=== PATIENT | male | born 1955 | race Caucasian/White ===

== ENCOUNTER 2018-04-11 05:06 | Observation (INO) ==
[2018-04-11] MEDS ORDERED: MORPHINE 4 MG/1 ML VIAL IV PRN (05:36)
[2018-04-11] MEDS ORDERED: ONDANSETRON 4 MG/2 ML VIAL IV PRN (05:36)
[2018-04-11] MEDS ORDERED: NITROGLYCERIN SL 0.4 MG TABLET SL PRN (05:39)
[2018-04-11] MEDS ORDERED: GLUCAGON 1 MG VIAL IM PRN (06:16)
[2018-04-11] MEDS ORDERED: DEXTROSE 50% 25 GM/50 ML VIAL IV PRN (06:16)
[2018-04-11 06:19] LABS: Albumin 3.3 G/DL (3.4-5.0); Bilirubin,Total 0.4 MG/DL (0.2-1.0); Calcium 8.8 MG/DL (8.5-10.1); Osmolality,Calculated 287.4 MOS/KG (273-304); Potassium 3.7 MMOL/L (3.5-5.1); Risk Ratio 3.16; Total Protein 6.6 G/DL (6.4-8.3); VLDL CHOLESTEROL 57.6 MG/DL
[2018-04-11 06:22] LABS: Basophils # 0.1 10*3/uL (0.0-0.2); Basophils % 0.6 % (0.0-0.8); Eosinophils # 0.2 10*3/uL (0.0-0.87); Eosinophils % 2.1 % (0.00-10.9); Hematocrit 38.7 VOL% (42.0-52.0); Hemoglobin 13.1 GM/DL (14.0-18.0); Immature Granulocytes % 0.6 %; Immature Granulocytes Absolute 0.05 #; Lymphocytes # 2.1 10*3/uL (1.4-4.0); Lymphocytes % 26.4 % (21.2-54.2); Mean Corpuscular HGB Conc 33.9 GM/DL (32-36); Mean Corpuscular Hemoglobin 31 PG (27-34); Mean Platelet Volume 10.4 FL (9.6-12.0); Monocytes # 0.7 10*3/uL (0.11-0.8); Monocytes % 8.4 % (1.7-12.7); Neutrophils % 61.9 % (38.7-73.9); Platelet Count 214 T/CUMM (130-400); Red Cell Distribution Width 12.8 % (9.3-17.3)
[2018-04-11] MEDS ORDERED: POTASSIUM CHLORIDE 20 MEQ TABLET PO ONE (06:38)
[2018-04-11] MEDS ORDERED: ENOXAPARIN 40 MG/0.4 ML SYRINGE SUBCUT SCH (07:00)
[2018-04-11] MEDS ORDERED: INSULIN LISPRO 100 UNIT/ML SUBCUT SCH (07:30)
[2018-04-11] MEDS: GLIMEPIRIDE 4 MG TABLET PO SCH ×2 (08:28→20:55)
[2018-04-11] MEDS: INSULIN REGULAR 100 UNIT/ML SUBCUT SCH ×5 (08:34→20:59)
[2018-04-11] MEDS: PRAMIPEXOLE 1 MG TABLET PO SCH ×2 (08:37→21:07)
[2018-04-11] MEDS ORDERED: PANTOPRAZOLE 40 MG TABLET PO SCH ×2 (09:00→21:00)
[2018-04-11] MEDS ORDERED: MAGNESIUM SULF RIDER 2 GM in PREMIX 1 EACH IV PRN (11:01)
[2018-04-11] MEDS ORDERED: DIAZEPAM 5 MG TABLET PO ONE (11:01)
[2018-04-11] MEDS ORDERED: diphenhydrAMINE CAP 25 MG CAPSULE PO ONE (11:01)
[2018-04-11] MEDS ORDERED: POTASSIUM CHLORIDE RIDER 10 MEQ in PREMIX 1 EACH IV PRN (11:01)
[2018-04-11] MEDS ORDERED: HEPARIN/NACL 0.9% 2 UNITS/ML 1,000 ML IV ONE (11:24)
[2018-04-11] MEDS ORDERED: SODIUM CHLORIDE 0.45% 1,000 ML IV SCH (11:30)
[2018-04-11] MEDS ORDERED: NITROGLYCERIN DRIP 50 MG/250 ML BOTTLE IV ONE (11:34)
[2018-04-11] MEDS ORDERED: fentaNYL 100 MCG/2 ML VIAL ONE (11:35)
[2018-04-11] MEDS ORDERED: MIDAZOLAM 2 MG/2 ML VIAL ONE (11:35)
[2018-04-11] MEDS ORDERED: VERAPAMIL 5 MG/2 ML VIAL ONE (11:35)
[2018-04-11] MEDS ORDERED: ENOXAPARIN 30 MG/0.3 ML SYRINGE ONE (12:18)
[2018-04-11] MEDS ORDERED: ENOXAPARIN 80 MG/0.8 ML SYRINGE SUBCUT SCH (13:30)
[2018-04-11] MEDS: METOPROLOL TARTRATE 25 MG TABLET PO SCH (20:55)
[2018-04-11] MEDS ORDERED: ASPIRIN EC 81 MG TABLET PO SCH (21:00)
[2018-04-11] MEDS ORDERED: CLOPIDOGREL 75 MG TABLET PO SCH (21:00)
[2018-04-11] MEDS ORDERED: amLODIPine 10 MG TABLET PO SCH (21:00)
[2018-04-11] MEDS ORDERED: GABAPENTIN 300 MG CAPSULE PO SCH (21:00)
[2018-04-11] MEDS ORDERED: ATORVASTATIN 40 MG TABLET PO SCH (21:00)
[2018-04-11] MEDS ORDERED: ASPIRIN EC 325 MG TABLET PO SCH (21:00)
[2018-04-12 04:18] LABS: Basophils % 0.2 % (0.0-0.8); Eosinophils # 0.2 10*3/uL (0.0-0.87); Eosinophils % 2.9 % (0.00-10.9); Hemoglobin 13.6 GM/DL (14.0-18.0); Immature Granulocytes % 0.4 %; Immature Granulocytes Absolute 0.03 #; Lymphocytes # 2.5 10*3/uL (1.4-4.0); Lymphocytes % 29.4 % (21.2-54.2); Mean Corpuscular Hemoglobin 30 PG (27-34); Mean Corpuscular Volume 88.9 FL (87-102); Mean Platelet Volume 10.7 FL (9.6-12.0); Monocytes # 0.7 10*3/uL (0.11-0.8); Monocytes % 8.6 % (1.7-12.7); Neutrophils # 4.9 10*3/uL (1.4-7.4); Neutrophils % 58.5 % (38.7-73.9); Platelet Count 208 T/CUMM (130-400); Red Cell Distribution Width 13.2 % (9.3-17.3); White Blood Count 8.4 T/CUMM (4-12)
[2018-04-12 04:58] LABS: Calcium 8.4 MG/DL (8.5-10.1); Osmolality,Calculated 283.1 MOS/KG (273-304); Potassium 3.6 MMOL/L (3.5-5.1)
[2018-04-12] MEDS: INSULIN REGULAR 100 UNIT/ML SUBCUT SCH ×2 (08:44→12:17)
[2018-04-12] MEDS: GLIMEPIRIDE 4 MG TABLET PO SCH (08:44)
[2018-04-12] MEDS: METOPROLOL TARTRATE 25 MG TABLET PO SCH (08:44)
[2018-04-12] MEDS: PRAMIPEXOLE 1 MG TABLET PO SCH (08:44)
[2018-04-12 12:05] VITALS: BP 137/92
== END 2018-04-12 13:20 | disposition home or self-care (01) ==
LOC: EDBD → EDUNIT# → N.ED 05:06 → N.EDINP 05:06 → N.3E 06:25 → N.TELES 13:22
PROC: CLCCHCL (ICD-10-PCS; 2018-04-11 12:15)

== ENCOUNTER 2018-04-18 09:00 | Inpatient (IN) ==
[~2018-04-18 09:00] MED LIST: DEXTROSE 50% 25 GM/50 ML VIAL IV PRN; GLUCAGON 1 MG VIAL IM PRN; NITROGLYCERIN SL 0.4 MG TABLET SL PRN; PRAVASTATIN 40 MG TABLET PO SCH; traMADol 50 MG TABLET PO PRN
[2018-04-18 11:00] LABS: Basophils % 0.4 % (0.0-0.8); Eosinophils # 0.1 10*3/uL (0.0-0.87); Eosinophils % 1.4 % (0.00-10.9); Hematocrit 42.5 VOL% (42.0-52.0); Hemoglobin 14.3 GM/DL (14.0-18.0); Immature Granulocytes % 0.4 %; Immature Granulocytes Absolute 0.03 #; Lymphocytes # 2.3 10*3/uL (1.4-4.0); Lymphocytes % 28.9 % (21.2-54.2); Mean Corpuscular HGB Conc 33.6 GM/DL (32-36); Mean Corpuscular Hemoglobin 30 PG (27-34); Mean Corpuscular Volume 89.9 FL (87-102); Mean Platelet Volume 10.7 FL (9.6-12.0); Monocytes # 0.8 10*3/uL (0.11-0.8); Monocytes % 9.6 % (1.7-12.7); Neutrophils # 4.6 10*3/uL (1.4-7.4); Neutrophils % 59.3 % (38.7-73.9); Platelet Count 205 T/CUMM (130-400); Red Blood Count 4.73 MC/CUMM (3.8-5.5); Red Cell Distribution Width 12.8 % (9.3-17.3); White Blood Count 7.8 T/CUMM (4-12)
[2018-04-18 11:01] LABS: ABG Base Excess 0.1 MMOL/L (-2.5-2.5); ABG HCO3 24.5 MMOL/L (20-26); ABG Oxygen Saturation 96.8 % (95-100); ABG PCO2 41.6 MM HG (35-48); ABG PH 7.389 (7.35-7.45); ABG TCO2 21.6 MMOL/L (23-27)
[2018-04-18 11:35] LABS: Albumin 3.7 G/DL (3.4-5.0); Bilirubin,Total 0.6 MG/DL (0.2-1.0); Calcium 9.3 MG/DL (8.5-10.1); Osmolality,Calculated 281.5 MOS/KG (273-304); Total Protein 7.5 G/DL (6.4-8.3)
[2018-04-18] MEDS: PANTOPRAZOLE 40 MG TABLET PO SCH ×3 (14:40→21:21)
[2018-04-18] MEDS: CHLORHEXIDINE 4% SOLN 118 ML BOTTLE TOP SCH ×2 (15:00→21:23)
[2018-04-18] MEDS: SODIUM CHLORIDE 0.9% 1,000 ML IV SCH (16:53)
[2018-04-18] MEDS: ATORVASTATIN 40 MG TABLET PO SCH ×3 (16:53→16:56)
[2018-04-18] MEDS ORDERED: GABAPENTIN 300 MG CAPSULE PO SCH (21:00)
[2018-04-18] MEDS ORDERED: PRAVASTATIN 40 MG TABLET PO SCH (21:00)
[2018-04-18] MEDS ORDERED: amLODIPine 10 MG TABLET PO SCH (21:00)
[2018-04-18] MEDS: PRAMIPEXOLE 1 MG TABLET PO SCH (21:20)
[2018-04-18] MEDS: METOPROLOL TARTRATE 25 MG TABLET PO SCH (21:20)
[2018-04-18] MEDS: GLIMEPIRIDE 4 MG TABLET PO SCH (21:20)
[2018-04-18] MEDS: CHLORHEXIDINE 0.12% ORAL RINSE 60 ML BOTTLE SWISH/SPIT SCH (21:23)
[2018-04-19] MEDS ORDERED: CEFUROXIME INJ 1,500 MG in SYRINGE 1 EACH IV ONE (05:00)
[2018-04-19] MEDS ORDERED: FAMOTIDINE 20 MG TABLET PO ONE ×2 (05:02→05:30)
[2018-04-19] MEDS ORDERED: DIAZEPAM 5 MG TABLET PO ONE ×2 (05:02→05:30)
[2018-04-19] MEDS ORDERED: METOPROLOL TARTRATE 25 MG TABLET PO ONE ×2 (05:02→05:30)
[2018-04-19] MEDS ORDERED: VANCOMYCIN 1,000 MG VIAL ONE (05:17)
[2018-04-19] MEDS ORDERED: PAPAVERINE 60 MG/2 ML VIAL ONE (05:17)
[2018-04-19] MEDS ORDERED: PHENYLEPHRINE DRIP 40 MG/250 ML PREMIX IV ONE (07:28)
[2018-04-19] MEDS ORDERED: CALCIUM CHLORIDE 1,000 MG/10 ML SYRINGE IV ONE (07:28)
[2018-04-19] MEDS ORDERED: NITROPRUSSIDE 50 MG/2 ML VIAL ONE (07:28)
[2018-04-19] MEDS ORDERED: POTASSIUM CHLORIDE RIDER 100 ML IV ONE (07:29)
[2018-04-19 07:37] LABS: ABG Base Excess -1.6 MMOL/L (-2.5-2.5); ABG HCO3 24.3 MMOL/L (20-26); ABG Oxygen Saturation 99.5 % (95-100); ABG PCO2 45.6 MM HG (35-48); ABG PH 7.345 (7.35-7.45); ABG PO2 457.3 MM HG (80-95); ABG TCO2 25.7 MMOL/L (23-27); Glucose Heart Surgery 199 MG/DL (74-106); Hemoglobin Heart Surgery 14.5 G/DL (14.0-18.0); PCO2 Patient Temp Arterial 45.6 MMHG; PH Patient Temp Arterial 7.345; PO2 Patient Temp Arterial 457.3 MM HG; Patient Temperature 37 CELCIUS; Potassium Heart/CVR 4.1 MMOL/L (3.5-5.1); Sodium Heart/CVR 138 MMOL/L (135-145)
[2018-04-19 08:17] LABS: Apearance,Urine Slightly Hazy (Clear); Bilirubin,Urine Negative (Negative); Blood, Urine Large mg/dL (Negative); Glucose,Urine (UA) >=500 mg/dL (Negative); Ketones,Urine Negative (Negative); Mucus,Urine Occasional /LPF (Occasional); Nitrite,Urine Negative (Negative); Protein,Urine 30 MG/DL; RBC,Urine 1065 /HPF (0-4); Urine Color Yellow (Yellow); Urine Urobilinogen < 2.0 EU/DL (0.2-1.0); WBC,Urine 4 /HPF (0-6)
[2018-04-19] MEDS ORDERED: ASPIRIN EC 325 MG TABLET PO SCH (09:00)
[2018-04-19] MEDS: CHLORHEXIDINE 4% SOLN 118 ML BOTTLE TOP SCH (09:07)
[2018-04-19] MEDS: GLIMEPIRIDE 4 MG TABLET PO SCH (09:07)
[2018-04-19] MEDS: CHLORHEXIDINE 0.12% ORAL RINSE 60 ML BOTTLE SWISH/SPIT SCH (09:07)
[2018-04-19] MEDS: PRAMIPEXOLE 1 MG TABLET PO SCH (09:07)
[2018-04-19] MEDS: METOPROLOL TARTRATE 25 MG TABLET PO SCH (09:07)
[2018-04-19 09:11] LABS: Hemoglobin Heart Surgery 10.3 G/DL (14.0-18.0); PCO2 Patient Temp Venous 35.3 MM HG; PH Patient Temp Venous 7.455; PO2 Patient Temp Venous 47.1 MM HG; Potassium Heart/CVR 4.9 MMOL/L (3.5-5.1); VBG Base Excess 0.4 MEQ/L (0-4); VBG HCO3 24.7 MEQ/L (24-28); VBG Oxygen Saturation 85.3 %; VBG PCO2 38.5 MMHG (41-51); VBG PH 7.425; VBG PO2 54.2 MMHG (17-40)
[2018-04-19 09:50] LABS: Hemoglobin Heart Surgery 10.9 G/DL (14.0-18.0); PCO2 Patient Temp Venous 29.4 MM HG; PH Patient Temp Venous 7.513; PO2 Patient Temp Venous 42.9 MM HG; Potassium Heart/CVR 5.4 MMOL/L (3.5-5.1); VBG Base Excess 0.4 MEQ/L (0-4); VBG HCO3 23.7 MEQ/L (24-28); VBG Oxygen Saturation 86.4 %; VBG PCO2 33.5 MMHG (41-51); VBG PH 7.468; VBG PO2 52.9 MMHG (17-40)
[2018-04-19 10:13] LABS: Hemoglobin Heart Surgery 10.3 G/DL (14.0-18.0); PCO2 Patient Temp Venous 30.5 MM HG; PH Patient Temp Venous 7.5; Potassium Heart/CVR 5.7 MMOL/L (3.5-5.1); VBG Base Excess 0.5 MEQ/L (0-4); VBG HCO3 23.5 MEQ/L (24-28); VBG Oxygen Saturation 79.6 %; VBG PCO2 31.9 MMHG (41-51); VBG PH 7.485
[2018-04-19 10:46] LABS: ABG Base Excess -1.4 MMOL/L (-2.5-2.5); ABG HCO3 22.8 MMOL/L (20-26); ABG Oxygen Saturation 98.3 % (95-100); ABG PCO2 36.3 MM HG (35-48); ABG PH 7.416 (7.35-7.45); ABG PO2 151.2 MM HG (80-95); ABG TCO2 23.9 MMOL/L (23-27); Glucose Heart Surgery 270 MG/DL (74-106); Hemoglobin Heart Surgery 11.1 G/DL (14.0-18.0); PCO2 Patient Temp Arterial 36.3 MMHG; PH Patient Temp Arterial 7.416; PO2 Patient Temp Arterial 151.2 MM HG; Patient Temperature 37 CELCIUS; Potassium Heart/CVR 4.8 MMOL/L (3.5-5.1); Sodium Heart/CVR 132 MMOL/L (135-145)
[2018-04-19] MEDS ORDERED: DEXTROSE 5% KCL 20 MEQ 20 MEQ/1,000 ML BAG IV ONE (10:57)
[2018-04-19] MEDS ORDERED: PROTAMINE SULFATE 250 MG/25 ML VIAL IV ONE (10:58)
[2018-04-19] MEDS ORDERED: SODIUM BICARBONATE 50 MEQ/50 ML SYRINGE IV ONE (10:58)
[2018-04-19] MEDS ORDERED: FUROSEMIDE 20 MG/2 ML VIAL ONE (10:58)
[2018-04-19] MEDS ORDERED: ALBUMIN 25% 25 GM/100 ML VIAL IV ONE (10:58)
[2018-04-19] MEDS ORDERED: ALBUMIN 5% 12.5 GM/250 ML VIAL IV ONE (10:58)
[2018-04-19] MEDS ORDERED: MANNITOL 12.5 GM/50 ML VIAL IV ONE (10:58)
[2018-04-19] MEDS ORDERED: methylPREDNISolone SOD SUC 1,000 MG/8 ML VIAL ONE (10:58)
[2018-04-19] MEDS ORDERED: HEPARIN 10,000 UNIT/10 ML VIAL ONE (10:58)
[2018-04-19] MEDS ORDERED: PROTAMINE SULFATE 50 MG/5 ML VIAL IV ONE ×3 (10:58→12:30)
[2018-04-19] MEDS ORDERED: MAGNESIUM SULFATE 1 GM/2 ML VIAL ONE (10:58)
[2018-04-19] MEDS ORDERED: MIDAZOLAM 10 MG/2 ML VIAL IV PRN (11:51)
[2018-04-19] MEDS ORDERED: MIDAZOLAM 2 MG/2 ML VIAL IV PRN (11:51)
[2018-04-19] MEDS ORDERED: ONDANSETRON 4 MG/2 ML VIAL IV PRN (11:51)
[2018-04-19] MEDS ORDERED: LACTATED RINGERS 250 ML IV PRN (11:51)
[2018-04-19] MEDS ORDERED: VECURONIUM 10 MG VIAL IV PRN ×2 (11:51)
[2018-04-19] MEDS ORDERED: MAGNESIUM SULF RIDER 4 GM in PREMIX 1 EACH IV PRN (11:51)
[2018-04-19] MEDS ORDERED: CALCIUM CHLORIDE 1,000 MG/10 ML SYRINGE IV PRN (11:51)
[2018-04-19] MEDS ORDERED: MAGNESIUM SULF RIDER 2 GM in PREMIX 1 EACH IV PRN (11:51)
[2018-04-19] MEDS ORDERED: PHENYLEPHRINE DRIP 40 MG/250 ML PREMIX IV PRN (11:51)
[2018-04-19] MEDS ORDERED: INSULIN REGULAR 100 UNIT/ML IV PRN (11:51)
[2018-04-19] MEDS ORDERED: ALBUMIN 5% 12.5 GM in PREMIX 1 EACH IV PRN (11:51)
[2018-04-19] MEDS ORDERED: ACETAMINOPHEN 650 MG SUPP RECTAL PRN (11:51)
[2018-04-19] MEDS ORDERED: NITROPRUSSIDE 100 MG in DEXTROSE 5% 250 ML IV PRN (11:51)
[2018-04-19] MEDS ORDERED: INSULIN REGULAR 100 UNIT/ML IV ONE (11:51)
[2018-04-19] MEDS ORDERED: DEXTROSE 50% 25 GM/50 ML VIAL IV PRN ×2 (11:51)
[2018-04-19] MEDS ORDERED: MORPHINE 10 MG/1 ML VIAL IV PRN (11:51)
[2018-04-19] MEDS ORDERED: INSULIN REGULAR DRIP 100 ML IV SCH (12:00)
[2018-04-19] MEDS ORDERED: SODIUM CHLORIDE 0.45% 1,000 ML IV SCH ×2 (12:00)
[2018-04-19 12:12] LABS: ABG Base Excess -1.9 MMOL/L (-2.5-2.5); ABG HCO3 23.7 MMOL/L (20-26); ABG Oxygen Saturation 95.8 % (95-100); ABG PCO2 43.5 MM HG (35-48); ABG PH 7.354 (7.35-7.45); ABG PO2 95.8 MM HG (80-95); Glucose Heart Surgery 211 MG/DL (74-106); Hemoglobin Heart Surgery 11.5 G/DL (14.0-18.0); Potassium Heart/CVR 3.7 MMOL/L (3.5-5.1)
[2018-04-19 12:18] LABS: Basophils % 0.2 % (0.0-0.8); Eosinophils # 0.1 10*3/uL (0.0-0.87); Eosinophils % 0.6 % (0.00-10.9); Hematocrit 31.9 VOL% (42.0-52.0); Hemoglobin 10.9 GM/DL (14.0-18.0); Immature Granulocytes % 0.9 %; Immature Granulocytes Absolute 0.11 #; Lymphocytes # 1.8 10*3/uL (1.4-4.0); Lymphocytes % 13.8 % (21.2-54.2); Mean Corpuscular HGB Conc 34.2 GM/DL (32-36); Mean Corpuscular Hemoglobin 31 PG (27-34); Mean Corpuscular Volume 91.4 FL (87-102); Mean Platelet Volume 10.9 FL (9.6-12.0); Monocytes # 0.7 10*3/uL (0.11-0.8); Monocytes % 5.7 % (1.7-12.7); Neutrophils % 78.8 % (38.7-73.9); Platelet Count 186 T/CUMM (130-400); Red Blood Count 3.49 MC/CUMM (3.8-5.5); White Blood Count 12.7 T/CUMM (4-12)
[2018-04-19] MEDS: POTASSIUM CHLORIDE RIDER 20 MEQ in PREMIX 1 EACH IV PRN ×4 (12:18→20:27)
[2018-04-19 12:25] LABS: INR 1.3; PT Patient Result 13.5 SECS; Partial Thromboplastin Time 27.4 SECS (0-40)
[2018-04-19 12:54] LABS: CKMB % 7.7 %
[2018-04-19 13:07] LABS: Albumin 3.1 G/DL (3.4-5.0); Bilirubin,Total 1.3 MG/DL (0.2-1.0); Calcium 9.9 MG/DL (8.5-10.1); Osmolality,Calculated 288.3 MOS/KG (273-304); Potassium 3.8 MMOL/L (3.5-5.1); Total Protein 5.3 G/DL (6.4-8.3)
[2018-04-19 13:45] LABS: ABG Base Excess 0.3 MMOL/L (-2.5-2.5); ABG HCO3 26.3 MMOL/L (20-26); ABG Oxygen Saturation 95.5 % (95-100); ABG PH 7.348 (7.35-7.45); ABG PO2 93.2 MM HG (80-95); ABG TCO2 27.8 MMOL/L (23-27); Glucose Heart Surgery 166 MG/DL (74-106); Potassium Heart/CVR 3.8 MMOL/L (3.5-5.1)
[2018-04-19] MEDS: KETOROLAC 30 MG/1 ML VIAL IV SCH ×2 (14:29→17:36)
[2018-04-19] MEDS: POTASSIUM CHLORIDE RIDER 10 MEQ in PREMIX 1 EACH IV PRN ×2 (14:51→21:00)
[2018-04-19 16:22] LABS: ABG Base Excess -0.4 MMOL/L (-2.5-2.5); ABG HCO3 26.7 MMOL/L (20-26); ABG Oxygen Saturation 95.2 % (95-100); ABG PCO2 55.6 MM HG (35-48); ABG PO2 93.5 MM HG (80-95); ABG TCO2 28.5 MMOL/L (23-27); Glucose Heart Surgery 128 MG/DL (74-106); Hemoglobin Heart Surgery 11.5 G/DL (14.0-18.0); Potassium Heart/CVR 4.1 MMOL/L (3.5-5.1)
[2018-04-19] MEDS: SODIUM CHLORIDE 0.9% 1,000 ML IV SCH (17:32)
[2018-04-19 17:46] LABS: ABG Base Excess -1.1 MMOL/L (-2.5-2.5); ABG HCO3 25.4 MMOL/L (20-26); ABG Oxygen Saturation 96.2 % (95-100); ABG PCO2 49.9 MM HG (35-48); ABG PH 7.325 (7.35-7.45); ABG PO2 101.1 MM HG (80-95); Glucose Heart Surgery 134 MG/DL (74-106); Hemoglobin Heart Surgery 12.8 G/DL (14.0-18.0); Potassium Heart/CVR 4.5 MMOL/L (3.5-5.1)
[2018-04-19 19:10] LABS: ABG Base Excess -5.2 MMOL/L (-2.5-2.5); ABG PCO2 43.3 MM HG (35-48); ABG PH 7.303 (7.35-7.45); ABG PO2 98.2 MM HG (80-95); ABG TCO2 22.3 MMOL/L (23-27); Glucose Heart Surgery 180 MG/DL (74-106); Hemoglobin Heart Surgery 11.4 G/DL (14.0-18.0); Potassium Heart/CVR 3.9 MMOL/L (3.5-5.1)
[2018-04-19] MEDS: ALBUTEROL/IPRATROPIUM 3 ML NEB RESP TX SCH (19:26)
[2018-04-19 20:06] LABS: ABG Base Excess -4.6 MMOL/L (-2.5-2.5); ABG HCO3 21.2 MMOL/L (20-26); ABG Oxygen Saturation 96.3 % (95-100); ABG PCO2 41.9 MM HG (35-48); ABG PH 7.321 (7.35-7.45); ABG TCO2 22.4 MMOL/L (23-27); Glucose Heart Surgery 190 MG/DL (74-106); Hemoglobin Heart Surgery 10.6 G/DL (14.0-18.0); Potassium Heart/CVR 3.8 MMOL/L (3.5-5.1)
[2018-04-19] MEDS ORDERED: FUROSEMIDE 40 MG/4 ML VIAL IV ONE (20:07)
[2018-04-19] MEDS: CEFUROXIME INJ 1,500 MG in SYRINGE 1 EACH IV SCH (20:27)
[2018-04-19 20:38] LABS: CKMB % 6.9 %
[2018-04-19] MEDS ORDERED: CHLORHEXIDINE 0.12% ORAL RINSE 60 ML BOTTLE SWISH/SPIT SCH (21:00)
[2018-04-19 21:25] LABS: ABG Base Excess -4.2 MMOL/L (-2.5-2.5); ABG HCO3 21.1 MMOL/L (20-26); ABG Oxygen Saturation 94.3 % (95-100); ABG PCO2 39.5 MM HG (35-48); ABG PH 7.346 (7.35-7.45); ABG PO2 83.1 MM HG (80-95); ABG TCO2 22.3 MMOL/L (23-27); Glucose Heart Surgery 190 MG/DL (74-106); Hemoglobin Heart Surgery 10.8 G/DL (14.0-18.0); Potassium Heart/CVR 4.1 MMOL/L (3.5-5.1)
[2018-04-19] MEDS: MORPHINE 4 MG/1 ML VIAL IV PRN (21:36)
[2018-04-20 00:05] LABS: ABG Base Excess 1.3 MMOL/L (-2.5-2.5); ABG HCO3 25.9 MMOL/L (20-26); ABG PCO2 41.3 MM HG (35-48); ABG PH 7.416 (7.35-7.45); ABG PO2 71.5 MM HG (80-95); ABG TCO2 27.2 MMOL/L (23-27); Glucose Heart Surgery 145 MG/DL (74-106); Hemoglobin Heart Surgery 10.4 G/DL (14.0-18.0); Potassium Heart/CVR 3.9 MMOL/L (3.5-5.1)
[2018-04-20] MEDS: MORPHINE 4 MG/1 ML VIAL IV PRN ×2 (02:03→05:07)
[2018-04-20 03:52] LABS: ABG Base Excess 0.9 MMOL/L (-2.5-2.5); ABG HCO3 25.6 MMOL/L (20-26); ABG Oxygen Saturation 93.6 % (95-100); ABG PCO2 41.4 MM HG (35-48); ABG PH 7.409 (7.35-7.45); ABG PO2 80.1 MM HG (80-95); ABG TCO2 26.9 MMOL/L (23-27); Glucose Heart Surgery 148 MG/DL (74-106); Hemoglobin Heart Surgery 10.3 G/DL (14.0-18.0); Potassium Heart/CVR 3.7 MMOL/L (3.5-5.1)
[2018-04-20 03:52] LABS: Basophils % 0.1 % (0.0-0.8); Hematocrit 28.8 VOL% (42.0-52.0); Hemoglobin 9.7 GM/DL (14.0-18.0); Immature Granulocytes % 0.8 %; Immature Granulocytes Absolute 0.13 #; Lymphocytes # 0.7 10*3/uL (1.4-4.0); Lymphocytes % 4.4 % (21.2-54.2); Mean Corpuscular HGB Conc 33.7 GM/DL (32-36); Mean Corpuscular Hemoglobin 31 PG (27-34); Mean Platelet Volume 10.7 FL (9.6-12.0); Monocytes # 1.1 10*3/uL (0.11-0.8); Monocytes % 6.5 % (1.7-12.7); Neutrophils # 14.6 10*3/uL (1.4-7.4); Neutrophils % 88.2 % (38.7-73.9); Platelet Count 174 T/CUMM (130-400); Red Blood Count 3.13 MC/CUMM (3.8-5.5); Red Cell Distribution Width 13.2 % (9.3-17.3); White Blood Count 16.6 T/CUMM (4-12)
[2018-04-20] MEDS: POTASSIUM CHLORIDE RIDER 20 MEQ in PREMIX 1 EACH IV PRN (04:01)
[2018-04-20 04:23] LABS: Albumin 3.5 G/DL (3.4-5.0); Bilirubin,Direct 0.22 MG/DL (0.0-0.20); Bilirubin,Total 0.8 MG/DL (0.2-1.0); CKMB % 7.1 %; Calcium 8.9 MG/DL (8.5-10.1); Osmolality,Calculated 285.3 MOS/KG (273-304); Potassium 3.8 MMOL/L (3.5-5.1); Total Protein 6.4 G/DL (6.4-8.3)
[2018-04-20] MEDS: POTASSIUM CHLORIDE RIDER 10 MEQ in PREMIX 1 EACH IV PRN (04:33)
[2018-04-20 04:43] LABS: Band Neutrophils 3 % (0-10); Hypochromasia 1+; Lymphocytes 9 % (20-55); Platelet Estimate Normal; Segmented Neutrophils 85 % (50-85); Total Cells Counted 100
[2018-04-20] MEDS: KETOROLAC 30 MG/1 ML VIAL IV SCH ×5 (05:57→22:00)
[2018-04-20] MEDS ORDERED: traMADol 50 MG TABLET PO PRN (06:21)
[2018-04-20] MEDS: ALBUTEROL/IPRATROPIUM 3 ML NEB RESP TX SCH ×4 (07:02→20:09)
[2018-04-20] MEDS: CEFUROXIME INJ 1,500 MG in SYRINGE 1 EACH IV SCH (07:34)
[2018-04-20] MEDS ORDERED: DEXTROSE 50% 25 GM/50 ML VIAL IV PRN ×3 (07:45→08:29)
[2018-04-20] MEDS ORDERED: GLUCAGON 1 MG VIAL IM PRN ×3 (07:45→08:29)
[2018-04-20] MEDS ORDERED: ACETAMINOPHEN 325 MG TABLET PO PRN (08:29)
[2018-04-20] MEDS ORDERED: POTASSIUM CHLORIDE 20 MEQ TABLET PO PRN (08:29)
[2018-04-20] MEDS ORDERED: MORPHINE 4 MG/1 ML VIAL IV PRN (08:29)
[2018-04-20] MEDS ORDERED: MAGNESIUM SULF RIDER 4 GM in PREMIX 1 EACH IV PRN (08:29)
[2018-04-20] MEDS ORDERED: ZALEPLON 5 MG CAPSULE PO PRN (08:29)
[2018-04-20] MEDS ORDERED: ONDANSETRON 4 MG/2 ML VIAL IV PRN (08:29)
[2018-04-20] MEDS ORDERED: MAGNESIUM SULF RIDER 2 GM in PREMIX 1 EACH IV PRN (08:29)
[2018-04-20] MEDS ORDERED: ALUMINUM/MAGNES/SIMETH MAX STR 30 ML UDCUP PO PRN (08:29)
[2018-04-20] MEDS: SODIUM CHLOR 0.45% KCL 20 MEQ 20 MEQ/1,000 ML BAG IV SCH (09:27)
[2018-04-20] MEDS: CHLORHEXIDINE 0.12% ORAL RINSE 60 ML BOTTLE SWISH/SPIT SCH ×2 (09:27→22:02)
[2018-04-20] MEDS: DOCUSATE SODIUM 100 MG CAPSULE PO SCH (09:28)
[2018-04-20] MEDS: METOPROLOL TARTRATE 25 MG TABLET PO SCH ×2 (09:28→22:02)
[2018-04-20] MEDS: PRAMIPEXOLE 1 MG TABLET PO SCH ×2 (09:28→22:01)
[2018-04-20] MEDS: FERROUS SULFATE 325 MG TABLET PO SCH (09:28)
[2018-04-20] MEDS: ASPIRIN EC 325 MG TABLET PO SCH (09:28)
[2018-04-20] MEDS: GLIMEPIRIDE 4 MG TABLET PO SCH ×2 (09:28→22:44)
[2018-04-20] MEDS: PANTOPRAZOLE 40 MG TABLET PO SCH (09:28)
[2018-04-20] MEDS ORDERED: INSULIN REGULAR 100 UNIT/ML SUBCUT SCH (10:00)
[2018-04-20] MEDS: INSULIN REGULAR 100 UNIT/ML SUBCUT SCH ×3 (13:02→22:00)
[2018-04-20] MEDS: GABAPENTIN 300 MG CAPSULE PO SCH (22:02)
[2018-04-20] MEDS: amLODIPine 10 MG TABLET PO SCH (22:02)
[2018-04-20] MEDS: PRAVASTATIN 40 MG TABLET PO SCH (22:02)
[2018-04-21] MEDS: ALBUTEROL/IPRATROPIUM 3 ML NEB RESP TX SCH ×4 (00:51→19:13)
[2018-04-21] MEDS: INSULIN REGULAR 100 UNIT/ML SUBCUT SCH ×7 (01:28→23:37)
[2018-04-21] MEDS: KETOROLAC 30 MG/1 ML VIAL IV SCH ×4 (03:00→21:00)
[2018-04-21 04:52] LABS: Basophils % 0.1 % (0.0-0.8); Hematocrit 25.6 VOL% (42.0-52.0); Hemoglobin 8.7 GM/DL (14.0-18.0); Immature Granulocytes % 2.5 %; Immature Granulocytes Absolute 0.42 #; Lymphocytes # 1.2 10*3/uL (1.4-4.0); Lymphocytes % 7.1 % (21.2-54.2); Mean Corpuscular Hemoglobin 31 PG (27-34); Mean Corpuscular Volume 91.1 FL (87-102); Mean Platelet Volume 11.7 FL (9.6-12.0); Monocytes # 1.4 10*3/uL (0.11-0.8); Monocytes % 8.5 % (1.7-12.7); Neutrophils # 13.9 10*3/uL (1.4-7.4); Neutrophils % 81.8 % (38.7-73.9); Platelet Count 157 T/CUMM (130-400); Red Blood Count 2.81 MC/CUMM (3.8-5.5); Red Cell Distribution Width 13.5 % (9.3-17.3)
[2018-04-21 05:30] LABS: Bilirubin,Direct 0.14 MG/DL (0.0-0.20); Bilirubin,Indirect 0.6 MG/DL (0.0-1.0); Bilirubin,Total 0.7 MG/DL (0.2-1.0)
[2018-04-21 05:32] LABS: Albumin 2.9 G/DL (3.4-5.0); Calcium 8.8 MG/DL (8.5-10.1); Osmolality,Calculated 293.4 MOS/KG (273-304); Potassium 4.2 MMOL/L (3.5-5.1)
[2018-04-21] MEDS ORDERED: FUROSEMIDE 40 MG/4 ML VIAL IV ONE (06:00)
[2018-04-21] MEDS: GLIMEPIRIDE 4 MG TABLET PO SCH ×2 (08:51→20:59)
[2018-04-21] MEDS: PRAMIPEXOLE 1 MG TABLET PO SCH ×2 (08:51→20:59)
[2018-04-21] MEDS: FERROUS SULFATE 325 MG TABLET PO SCH (08:51)
[2018-04-21] MEDS: DOCUSATE SODIUM 100 MG CAPSULE PO SCH (08:51)
[2018-04-21] MEDS: METOPROLOL TARTRATE 25 MG TABLET PO SCH ×2 (08:51→20:59)
[2018-04-21] MEDS: ASPIRIN EC 325 MG TABLET PO SCH (08:51)
[2018-04-21] MEDS: PANTOPRAZOLE 40 MG TABLET PO SCH (08:51)
[2018-04-21] MEDS: CHLORHEXIDINE 0.12% ORAL RINSE 60 ML BOTTLE SWISH/SPIT SCH ×2 (08:52→21:01)
[2018-04-21] MEDS: SODIUM CHLOR 0.45% KCL 20 MEQ 20 MEQ/1,000 ML BAG IV SCH (08:52)
[2018-04-21] MEDS: LEVOFLOXACIN 500 MG TABLET PO SCH (13:39)
[2018-04-21] MEDS: methylPREDNISolone SOD SUC 125 MG/2 ML VIAL IV SCH ×2 (13:40→23:38)
[2018-04-21] MEDS: GABAPENTIN 300 MG CAPSULE PO SCH (20:59)
[2018-04-21] MEDS: PRAVASTATIN 40 MG TABLET PO SCH (20:59)
[2018-04-21] MEDS: amLODIPine 10 MG TABLET PO SCH (20:59)
[2018-04-22] MEDS: ALBUTEROL/IPRATROPIUM 3 ML NEB RESP TX SCH ×4 (00:58→19:34)
[2018-04-22] MEDS: KETOROLAC 30 MG/1 ML VIAL IV SCH ×4 (03:50→21:35)
[2018-04-22 05:09] LABS: Basophils % 0.1 % (0.0-0.8); Hematocrit 26.6 VOL% (42.0-52.0); Hemoglobin 8.6 GM/DL (14.0-18.0); Immature Granulocytes % 1.8 %; Immature Granulocytes Absolute 0.26 #; Lymphocytes # 0.6 10*3/uL (1.4-4.0); Lymphocytes % 4.2 % (21.2-54.2); Mean Corpuscular HGB Conc 32.3 GM/DL (32-36); Mean Corpuscular Hemoglobin 30 PG (27-34); Mean Platelet Volume 11.8 FL (9.6-12.0); Monocytes # 0.7 10*3/uL (0.11-0.8); NRBC # 0.02 10*3/uL; Neutrophils # 12.9 10*3/uL (1.4-7.4); Neutrophils % 88.9 % (38.7-73.9); Platelet Count 159 T/CUMM (130-400); Red Blood Count 2.89 MC/CUMM (3.8-5.5); Red Cell Distribution Width 13.5 % (9.3-17.3); White Blood Count 14.5 T/CUMM (4-12)
[2018-04-22 05:14] LABS: Bilirubin,Indirect 0.7 MG/DL (0.0-1.0)
[2018-04-22 05:17] LABS: Alanine Aminotransferase 59 U/L (16-61); Albumin 2.7 G/DL (3.4-5.0); Alkaline Phosphatase 63 U/L (45-117); Aspartate Amino Transferase 40 U/L (0-37); Blood Urea Nitrogen 26 MG/DL (7-18); Calcium 9.3 MG/DL (8.5-10.1); Glucose 228 MG/DL (74-106); Osmolality,Calculated 292.3 MOS/KG (273-304); Potassium 4.3 MMOL/L (3.5-5.1); Sodium 141 MMOL/L (136-145); Total Protein 6.3 G/DL (6.4-8.3)
[2018-04-22] MEDS: INSULIN REGULAR 100 UNIT/ML SUBCUT SCH ×5 (05:45→21:35)
[2018-04-22] MEDS: methylPREDNISolone SOD SUC 125 MG/2 ML VIAL IV SCH ×3 (05:45→21:35)
[2018-04-22] MEDS: MAGNESIUM HYDROXIDE SUSP 30 ML UDCUP PO PRN (05:53)
[2018-04-22 06:47] LABS: Anisocytosis 1+; Band Neutrophils 5 % (0-10); Lymphocytes 4 % (20-55); Microcytosis 1+; Platelet Estimate Adequate; Polychromasia Few; Segmented Neutrophils 85 % (50-85); Total Cells Counted 100
[2018-04-22] MEDS ORDERED: AMIODARONE INJ 150 MG in DEXTROSE 5% 100 ML IV ONE (08:05)
[2018-04-22] MEDS ORDERED: AMIODARONE INJ 450 MG in DEXTROSE 5% 241 ML IV SCH (08:30)
[2018-04-22] MEDS: GLIMEPIRIDE 4 MG TABLET PO SCH ×2 (10:02→21:35)
[2018-04-22] MEDS: LEVOFLOXACIN 500 MG TABLET PO SCH (10:02)
[2018-04-22] MEDS: ASPIRIN EC 325 MG TABLET PO SCH (10:02)
[2018-04-22] MEDS: METOPROLOL TARTRATE 25 MG TABLET PO SCH ×2 (10:02→21:35)
[2018-04-22] MEDS: FERROUS SULFATE 325 MG TABLET PO SCH (10:02)
[2018-04-22] MEDS: CHLORHEXIDINE 0.12% ORAL RINSE 60 ML BOTTLE SWISH/SPIT SCH ×2 (10:02→21:38)
[2018-04-22] MEDS: PRAMIPEXOLE 1 MG TABLET PO SCH ×2 (10:02→21:34)
[2018-04-22] MEDS: DOCUSATE SODIUM 100 MG CAPSULE PO SCH (10:02)
[2018-04-22] MEDS: PANTOPRAZOLE 40 MG TABLET PO SCH (10:02)
[2018-04-22] MEDS: AMIODARONE INJ 450 MG in DEXTROSE 5% 241 ML IV SCH (16:04)
[2018-04-22] MEDS: amLODIPine 10 MG TABLET PO SCH (21:34)
[2018-04-22] MEDS: PRAVASTATIN 40 MG TABLET PO SCH (21:35)
[2018-04-22] MEDS: GABAPENTIN 300 MG CAPSULE PO SCH (21:35)
[2018-04-23] MEDS: INSULIN REGULAR 100 UNIT/ML SUBCUT SCH ×6 (00:35→20:24)
[2018-04-23] MEDS: ALBUTEROL/IPRATROPIUM 3 ML NEB RESP TX SCH ×4 (01:31→19:37)
[2018-04-23] MEDS: KETOROLAC 30 MG/1 ML VIAL IV SCH (04:49)
[2018-04-23] MEDS: methylPREDNISolone SOD SUC 125 MG/2 ML VIAL IV SCH ×3 (05:00→17:26)
[2018-04-23] MEDS: AMIODARONE INJ 450 MG in DEXTROSE 5% 241 ML IV SCH (07:10)
[2018-04-23] MEDS: PANTOPRAZOLE 40 MG TABLET PO SCH (09:25)
[2018-04-23] MEDS: APIXABAN 5 MG TABLET PO SCH ×2 (09:25→20:25)
[2018-04-23] MEDS: PRAMIPEXOLE 1 MG TABLET PO SCH ×2 (09:25→20:25)
[2018-04-23] MEDS: FERROUS SULFATE 325 MG TABLET PO SCH (09:26)
[2018-04-23] MEDS: CHLORHEXIDINE 0.12% ORAL RINSE 60 ML BOTTLE SWISH/SPIT SCH ×2 (09:26→20:25)
[2018-04-23] MEDS: GLIMEPIRIDE 4 MG TABLET PO SCH ×2 (09:26→20:25)
[2018-04-23] MEDS: ASPIRIN EC 325 MG TABLET PO SCH (09:26)
[2018-04-23] MEDS: METOPROLOL TARTRATE 25 MG TABLET PO SCH ×2 (09:26→20:25)
[2018-04-23] MEDS: AMIODARONE 200 MG TABLET PO SCH ×2 (09:26→20:25)
[2018-04-23] MEDS: LEVOFLOXACIN 500 MG TABLET PO SCH (09:26)
[2018-04-23] MEDS: DOCUSATE SODIUM 100 MG CAPSULE PO SCH (09:26)
[2018-04-23] MEDS: oxyCODONE/ACETAMINOPHEN 5-325 MG TABLET PO PRN (14:37)
[2018-04-23] MEDS: amLODIPine 10 MG TABLET PO SCH (20:24)
[2018-04-23] MEDS: PRAVASTATIN 40 MG TABLET PO SCH (20:25)
[2018-04-23] MEDS: GABAPENTIN 300 MG CAPSULE PO SCH (20:25)
[2018-04-24] MEDS: ALBUTEROL/IPRATROPIUM 3 ML NEB RESP TX SCH ×4 (00:04→21:25)
[2018-04-24] MEDS: INSULIN REGULAR 100 UNIT/ML SUBCUT SCH ×6 (00:15→21:13)
[2018-04-24] MEDS: oxyCODONE/ACETAMINOPHEN 5-325 MG TABLET PO PRN ×2 (04:00→11:22)
[2018-04-24] MEDS: methylPREDNISolone SOD SUC 125 MG/2 ML VIAL IV SCH ×2 (05:27→17:20)
[2018-04-24 05:32] LABS: Basophils % 0.1 % (0.0-0.8); Hematocrit 29.1 VOL% (42.0-52.0); Hemoglobin 9.5 GM/DL (14.0-18.0); Immature Granulocytes % 4.3 %; Immature Granulocytes Absolute 0.75 #; Lymphocytes % 11.5 % (21.2-54.2); Mean Corpuscular HGB Conc 32.6 GM/DL (32-36); Mean Corpuscular Hemoglobin 31 PG (27-34); Mean Corpuscular Volume 93.9 FL (87-102); Mean Platelet Volume 10.9 FL (9.6-12.0); Monocytes # 1.6 10*3/uL (0.11-0.8); Monocytes % 8.8 % (1.7-12.7); NRBC # 0.11 10*3/uL; Neutrophils # 13.2 10*3/uL (1.4-7.4); Neutrophils % 75.3 % (38.7-73.9); Platelet Count 249 T/CUMM (130-400); Red Cell Distribution Width 13.2 % (9.3-17.3); White Blood Count 17.6 T/CUMM (4-12)
[2018-04-24 05:58] LABS: Total Cells Counted 100
[2018-04-24 05:59] LABS: Band Neutrophils 5 % (0-10); Lymphocytes 12 % (20-55); Platelet Estimate Normal; Segmented Neutrophils 73 % (50-85)
[2018-04-24 06:36] LABS: Bilirubin,Indirect 0.4 MG/DL (0.0-1.0)
[2018-04-24 07:21] LABS: Alanine Aminotransferase 195 U/L (16-61); Albumin 2.9 G/DL (3.4-5.0); Alkaline Phosphatase 77 U/L (45-117); Aspartate Amino Transferase 82 U/L (0-37); Blood Urea Nitrogen 26 MG/DL (7-18); Calcium 9.2 MG/DL (8.5-10.1); Glucose 294 MG/DL (74-106); Osmolality,Calculated 288.8 MOS/KG (273-304); Potassium 4.3 MMOL/L (3.5-5.1); Sodium 137 MMOL/L (136-145); Total Protein 6.3 G/DL (6.4-8.3)
[2018-04-24] MEDS: PANTOPRAZOLE 40 MG TABLET PO SCH (08:49)
[2018-04-24] MEDS: LEVOFLOXACIN 500 MG TABLET PO SCH (08:49)
[2018-04-24] MEDS: METOPROLOL TARTRATE 25 MG TABLET PO SCH (08:49)
[2018-04-24] MEDS: GLIMEPIRIDE 4 MG TABLET PO SCH ×2 (08:50→21:14)
[2018-04-24] MEDS: FERROUS SULFATE 325 MG TABLET PO SCH (08:50)
[2018-04-24] MEDS: PRAMIPEXOLE 1 MG TABLET PO SCH ×2 (08:50→21:13)
[2018-04-24] MEDS: DOCUSATE SODIUM 100 MG CAPSULE PO SCH (08:50)
[2018-04-24] MEDS: ASPIRIN EC 325 MG TABLET PO SCH (08:50)
[2018-04-24] MEDS: APIXABAN 5 MG TABLET PO SCH ×2 (08:50→21:14)
[2018-04-24] MEDS: CHLORHEXIDINE 0.12% ORAL RINSE 60 ML BOTTLE SWISH/SPIT SCH ×2 (08:51→21:16)
[2018-04-24] MEDS: AMIODARONE 200 MG TABLET PO SCH ×2 (08:51→21:14)
[2018-04-24] MEDS ORDERED: amLODIPine 5 MG TABLET PO SCH (19:00)
[2018-04-24] MEDS: GABAPENTIN 300 MG CAPSULE PO SCH (21:14)
[2018-04-24] MEDS: METOPROLOL TARTRATE 50 MG TABLET PO SCH (21:14)
[2018-04-24] MEDS: PRAVASTATIN 40 MG TABLET PO SCH (21:14)
[2018-04-25] MEDS: INSULIN REGULAR 100 UNIT/ML SUBCUT SCH ×6 (01:04→21:26)
[2018-04-25] MEDS: ALBUTEROL/IPRATROPIUM 3 ML NEB RESP TX SCH ×4 (01:49→19:22)
[2018-04-25 05:07] LABS: Basophils % 0.2 % (0.0-0.8); Hematocrit 30.5 VOL% (42.0-52.0); Immature Granulocytes % 7.3 %; Immature Granulocytes Absolute 1.19 #; Lymphocytes # 1.6 10*3/uL (1.4-4.0); Lymphocytes % 9.5 % (21.2-54.2); Mean Corpuscular HGB Conc 32.8 GM/DL (32-36); Mean Corpuscular Hemoglobin 30 PG (27-34); Mean Corpuscular Volume 91.6 FL (87-102); Mean Platelet Volume 11.3 FL (9.6-12.0); Monocytes # 1.7 10*3/uL (0.11-0.8); Monocytes % 10.2 % (1.7-12.7); NRBC # 0.11 10*3/uL; Neutrophils # 11.9 10*3/uL (1.4-7.4); Neutrophils % 72.8 % (38.7-73.9); Platelet Count 249 T/CUMM (130-400); Red Blood Count 3.33 MC/CUMM (3.8-5.5); Red Cell Distribution Width 13.2 % (9.3-17.3); White Blood Count 16.4 T/CUMM (4-12)
[2018-04-25 05:29] LABS: Band Neutrophils 1 % (0-10); Lymphocytes 13 % (20-55); Platelet Estimate Adequate; Segmented Neutrophils 77 % (50-85); Total Cells Counted 100
[2018-04-25 05:30] LABS: Hypochromasia 1+; Macrocytosis Slight; Polychromasia Slight
[2018-04-25 05:34] LABS: Bilirubin,Indirect 0.7 MG/DL (0.0-1.0)
[2018-04-25 05:44] LABS: Alanine Aminotransferase 150 U/L (16-61); Albumin 2.9 G/DL (3.4-5.0); Alkaline Phosphatase 77 U/L (45-117); Aspartate Amino Transferase 35 U/L (0-37); Blood Urea Nitrogen 25 MG/DL (7-18); Calcium 8.6 MG/DL (8.5-10.1); Glucose 350 MG/DL (74-106); Potassium 4.2 MMOL/L (3.5-5.1); Sodium 136 MMOL/L (136-145); Total Protein 6.3 G/DL (6.4-8.3)
[2018-04-25] MEDS: methylPREDNISolone SOD SUC 125 MG/2 ML VIAL IV SCH (06:29)
[2018-04-25] MEDS: MAGNESIUM HYDROXIDE SUSP 30 ML UDCUP PO PRN (06:42)
[2018-04-25] MEDS: APIXABAN 5 MG TABLET PO SCH ×2 (09:01→21:26)
[2018-04-25] MEDS: ASPIRIN EC 81 MG TABLET PO SCH (09:01)
[2018-04-25] MEDS: DOCUSATE SODIUM 100 MG CAPSULE PO SCH (09:01)
[2018-04-25] MEDS: CHLORHEXIDINE 0.12% ORAL RINSE 60 ML BOTTLE SWISH/SPIT SCH ×2 (09:02→21:31)
[2018-04-25] MEDS: METOPROLOL TARTRATE 50 MG TABLET PO SCH ×2 (09:02→21:26)
[2018-04-25] MEDS: FERROUS SULFATE 325 MG TABLET PO SCH (09:02)
[2018-04-25] MEDS: GLIMEPIRIDE 4 MG TABLET PO SCH ×2 (09:02→21:26)
[2018-04-25] MEDS: PANTOPRAZOLE 40 MG TABLET PO SCH (09:02)
[2018-04-25] MEDS: PRAMIPEXOLE 1 MG TABLET PO SCH ×2 (09:03→21:31)
[2018-04-25] MEDS: predniSONE 5 MG TABLET PO SCH (09:37)
[2018-04-25] MEDS: AMIODARONE 200 MG TABLET PO SCH ×2 (09:37→21:26)
[2018-04-25] MEDS: GABAPENTIN 300 MG CAPSULE PO SCH (21:26)
[2018-04-25] MEDS: PRAVASTATIN 40 MG TABLET PO SCH (21:26)
[2018-04-26] MEDS: ALBUTEROL/IPRATROPIUM 3 ML NEB RESP TX SCH ×4 (00:29→19:01)
[2018-04-26] MEDS: INSULIN REGULAR 100 UNIT/ML SUBCUT SCH ×6 (00:32→21:11)
[2018-04-26 05:05] LABS: Basophils # 0.1 10*3/uL (0.0-0.2); Basophils % 0.3 % (0.0-0.8); Eosinophils # 0.1 10*3/uL (0.0-0.87); Eosinophils % 0.5 % (0.00-10.9); Hematocrit 30.8 VOL% (42.0-52.0); Hemoglobin 10.1 GM/DL (14.0-18.0); Immature Granulocytes Absolute 1.52 #; Lymphocytes # 3.6 10*3/uL (1.4-4.0); Lymphocytes % 21.4 % (21.2-54.2); Mean Corpuscular HGB Conc 32.8 GM/DL (32-36); Mean Corpuscular Hemoglobin 31 PG (27-34); Mean Corpuscular Volume 93.3 FL (87-102); Mean Platelet Volume 10.5 FL (9.6-12.0); Monocytes # 1.4 10*3/uL (0.11-0.8); Monocytes % 8.1 % (1.7-12.7); NRBC # 0.13 10*3/uL; Neutrophils # 10.3 10*3/uL (1.4-7.4); Neutrophils % 60.7 % (38.7-73.9); Platelet Count 213 T/CUMM (130-400); Red Cell Distribution Width 13.2 % (9.3-17.3)
[2018-04-26 05:31] LABS: Band Neutrophils 2 % (0-10); Hypochromasia 1+; Lymphocytes 21 % (20-55); Platelet Estimate Adequate; Segmented Neutrophils 73 % (50-85); Total Cells Counted 100
[2018-04-26 05:32] LABS: Macrocytosis Slight; Polychromasia Slight
[2018-04-26 05:43] LABS: Calcium 8.4 MG/DL (8.5-10.1); Osmolality,Calculated 284.7 MOS/KG (273-304); Potassium 3.5 MMOL/L (3.5-5.1)
[2018-04-26] MEDS: ASPIRIN EC 81 MG TABLET PO SCH (10:50)
[2018-04-26] MEDS: PRAMIPEXOLE 1 MG TABLET PO SCH ×2 (10:50→21:11)
[2018-04-26] MEDS: PANTOPRAZOLE 40 MG TABLET PO SCH (10:51)
[2018-04-26] MEDS: LOSARTAN 25 MG TABLET PO SCH (10:51)
[2018-04-26] MEDS: AMIODARONE 200 MG TABLET PO SCH ×2 (10:51→21:12)
[2018-04-26] MEDS: METOPROLOL TARTRATE 50 MG TABLET PO SCH ×2 (10:51→21:12)
[2018-04-26] MEDS: APIXABAN 5 MG TABLET PO SCH ×2 (10:51→21:12)
[2018-04-26] MEDS: DOCUSATE SODIUM 100 MG CAPSULE PO SCH (10:51)
[2018-04-26] MEDS: GLIMEPIRIDE 4 MG TABLET PO SCH ×2 (10:51→21:12)
[2018-04-26] MEDS: FERROUS SULFATE 325 MG TABLET PO SCH (10:51)
[2018-04-26] MEDS: predniSONE 5 MG TABLET PO SCH (10:52)
[2018-04-26] MEDS: CHLORHEXIDINE 0.12% ORAL RINSE 60 ML BOTTLE SWISH/SPIT SCH ×2 (10:52→21:12)
[2018-04-26] MEDS ORDERED: POTASSIUM CHLORIDE 10 MEQ TABLET PO ONE (13:48)
[2018-04-26] MEDS: oxyCODONE/ACETAMINOPHEN 5-325 MG TABLET PO PRN (15:06)
[2018-04-26] MEDS: GABAPENTIN 300 MG CAPSULE PO SCH (21:12)
[2018-04-26] MEDS: PRAVASTATIN 40 MG TABLET PO SCH (21:12)
[2018-04-27] MEDS: ALBUTEROL/IPRATROPIUM 3 ML NEB RESP TX SCH ×2 (00:29→07:14)
[2018-04-27] MEDS: INSULIN REGULAR 100 UNIT/ML SUBCUT SCH ×3 (01:29→09:11)
[2018-04-27] MEDS: oxyCODONE/ACETAMINOPHEN 5-325 MG TABLET PO PRN (05:05)
[2018-04-27 08:16] VITALS: BP 135/80
[2018-04-27] MEDS ORDERED: METOPROLOL SUCCINATE XL 50 MG TABLET PO SCH (09:00)
[2018-04-27] MEDS: DOCUSATE SODIUM 100 MG CAPSULE PO SCH (09:09)
[2018-04-27] MEDS: LOSARTAN 25 MG TABLET PO SCH (09:09)
[2018-04-27] MEDS: FERROUS SULFATE 325 MG TABLET PO SCH (09:09)
[2018-04-27] MEDS: ASPIRIN EC 81 MG TABLET PO SCH (09:10)
[2018-04-27] MEDS: AMIODARONE 200 MG TABLET PO SCH (09:10)
[2018-04-27] MEDS: GLIMEPIRIDE 4 MG TABLET PO SCH (09:10)
[2018-04-27] MEDS: predniSONE 5 MG TABLET PO SCH (09:10)
[2018-04-27] MEDS: CHLORHEXIDINE 0.12% ORAL RINSE 60 ML BOTTLE SWISH/SPIT SCH (09:10)
[2018-04-27] MEDS: PANTOPRAZOLE 40 MG TABLET PO SCH (09:10)
[2018-04-27] MEDS: PRAMIPEXOLE 1 MG TABLET PO SCH (09:10)
[2018-04-27] MEDS: APIXABAN 5 MG TABLET PO SCH (09:11)
== END 2018-04-27 10:30 | disposition home health service (06) | DRG 236 ==
LOC: N.4E 09:14 → N.CVR 04-19 09:14 → N.TELES 04-20 08:18

== ENCOUNTER 2020-08-18 05:44 | Inpatient (IN) ==
[2020-08-18] MEDS ORDERED: DIAZEPAM 5 MG TABLET PO ONE (06:03)
[2020-08-18] MEDS ORDERED: POTASSIUM CHLORIDE RIDER 10 MEQ in PREMIX 1 EACH IV PRN (06:03)
[2020-08-18] MEDS ORDERED: ASPIRIN 325 MG TABLET PO ONE (06:03)
[2020-08-18] MEDS ORDERED: MAGNESIUM SULF RIDER 2 GM in PREMIX 1 EACH IV PRN (06:03)
[2020-08-18] MEDS ORDERED: diphenhydrAMINE CAP 25 MG CAPSULE PO ONE (06:03)
[2020-08-18] MEDS ORDERED: DEXTROSE 5% NACL 0.45% 1,000 ML IV SCH (06:30)
[2020-08-18] MEDS ORDERED: HEPARIN/NACL 0.9% 2 UNITS/ML 1,000 ML IV ONE (06:49)
[2020-08-18] MEDS ORDERED: LIDOCAINE 1%/EPI INJ 20 ML VIAL ONE (06:49)
[2020-08-18] MEDS ORDERED: diphenhydrAMINE CAP 25 MG CAPSULE ONE (06:57)
[2020-08-18] MEDS ORDERED: DIAZEPAM 5 MG TABLET ONE (06:57)
[2020-08-18] MEDS ORDERED: HEPARIN 5,000 UNIT/1 ML VIAL ONE (07:06)
[2020-08-18] MEDS ORDERED: HEPARIN/NACL 0.9% 2 UNITS/ML 500 ML IV ONE ×2 (07:18→08:54)
[2020-08-18] MEDS ORDERED: TIROFIBAN 5,000 MCG/100 ML PREMIX IV ONE (09:28)
[2020-08-18] MEDS ORDERED: NITROGLYCERIN DRIP 50 MG/250 ML BOTTLE IV ONE (09:32)
[2020-08-18] MEDS ORDERED: CLOPIDOGREL 300 MG TABLET ONE (10:36)
[2020-08-18] MEDS ORDERED: ZALEPLON 5 MG CAPSULE PO PRN (11:13)
[2020-08-18] MEDS ORDERED: HEPARIN 10,000 UNIT/10 ML VIAL ONE (11:13)
[2020-08-18] MEDS ORDERED: propofoL 200 MG/20 ML VIAL IV ONE (11:13)
[2020-08-18] MEDS ORDERED: fentaNYL 100 MCG/2 ML VIAL IV PRN (11:13)
[2020-08-18] MEDS ORDERED: HYDROmorphone 2 MG/1 ML VIAL IV PRN (11:13)
[2020-08-18] MEDS ORDERED: ONDANSETRON 4 MG/2 ML VIAL IV PRN (11:13)
[2020-08-18] MEDS ORDERED: NITROGLYCERIN SL 0.4 MG TABLET SL PRN (11:13)
[2020-08-18] MEDS ORDERED: PHENYLEPHRINE 1 MG/10 ML SYRINGE IV ONE (11:14)
[2020-08-18] MEDS ORDERED: ETOMIDATE 40 MG/20 ML VIAL IV ONE (11:14)
[2020-08-18] MEDS ORDERED: METOPROLOL TARTRATE 5 MG/5 ML VIAL IV ONE (11:14)
[2020-08-18] MEDS ORDERED: SODIUM CHLORIDE 0.9% 250 ML IV ONE (11:14)
[2020-08-18] MEDS ORDERED: DEXMEDETOMIDINE 200 MCG/2 ML VIAL ONE (11:14)
[2020-08-18] MEDS ORDERED: LACTATED RINGERS 1,000 ML IV ONE (11:14)
[2020-08-18] MEDS ORDERED: diphenhydrAMINE 50 MG/1 ML VIAL ONE (11:14)
[2020-08-18] MEDS ORDERED: fentaNYL 100 MCG/2 ML VIAL ONE (11:14)
[2020-08-18] MEDS ORDERED: PANTOPRAZOLE 40 MG TABLET PO SCH (21:00)
[2020-08-18] MEDS ORDERED: ROSUVASTATIN 20 MG TABLET PO SCH (21:00)
[2020-08-18] MEDS: carvediloL 3.125 MG TABLET PO SCH (21:28)
[2020-08-18] MEDS: PRAMIPEXOLE 1 MG TABLET PO SCH (21:45)
[2020-08-18] MEDS: GLIMEPIRIDE 4 MG TABLET PO SCH (23:46)
[2020-08-19 05:26] LABS: Basophils % 0.3 % (0.0-0.8); Eosinophils # 0.2 10*3/uL (0.0-0.87); Eosinophils % 2.5 % (0.00-10.9); Hematocrit 32.3 VOL% (42.0-52.0); Hemoglobin 10.8 GM/DL (14.0-18.0); Immature Granulocytes % 0.3 %; Immature Granulocytes Absolute 0.03 #; Lymphocytes # 1.6 10*3/uL (1.4-4.0); Lymphocytes % 17.3 % (21.2-54.2); Mean Corpuscular HGB Conc 33.4 GM/DL (32-36); Mean Corpuscular Volume 89.5 FL (87-102); Mean Platelet Volume 10.5 FL (9.6-12.0); Monocytes % 9.1 % (1.7-12.7); Neutrophils % 70.5 % (38.7-73.9); Platelet Count 182 T/CUMM (130-400); Red Blood Count 3.61 MC/CUMM (3.8-5.5); Red Cell Distribution Width 13.1 % (9.3-17.3); White Blood Count 9.2 T/CUMM (4-12)
[2020-08-19 06:01] LABS: Calcium 8.7 MG/DL (8.5-10.1)
[2020-08-19] MEDS: NITROGLYCERIN SL 0.4 MG TABLET SL PRN ×2 (07:53→07:57)
[2020-08-19 08:36] VITALS: BP 139/83
[2020-08-19] MEDS ORDERED: amLODIPine 2.5 MG TABLET PO SCH (09:00)
[2020-08-19] MEDS ORDERED: LOSARTAN 50 MG TABLET PO SCH (09:00)
[2020-08-19] MEDS ORDERED: ISOSORBIDE MONONITRATE 30 MG TABLET PO SCH (09:00)
[2020-08-19] MEDS ORDERED: CLOPIDOGREL 75 MG TABLET PO SCH (09:00)
[2020-08-19] MEDS ORDERED: ASPIRIN CHEW 81 MG TABLET PO SCH (09:00)
[2020-08-19] MEDS: GLIMEPIRIDE 4 MG TABLET PO SCH (09:41)
[2020-08-19] MEDS: PRAMIPEXOLE 1 MG TABLET PO SCH (09:41)
[2020-08-19] MEDS: carvediloL 3.125 MG TABLET PO SCH (09:42)
== END 2020-08-19 13:30 | disposition home or self-care (01) | DRG 215 ==
LOC: OBSVTOIN 05:44 → N.CVR 05:44 → INTOOBSV 05:44 → N.CL 05:55 → EDSTATUS 08:49 → N.TELEN 11:01
PROVIDERS: ADMIT Internal Medicine Interventional Cardiology; ATTEND Internal Medicine Interventional Cardiology
PROC: CLCCHCL (ICD-10-PCS; 2020-08-18 07:45)